=== PATIENT | male | born 1945 | race Caucasian/White ===

== ENCOUNTER 2019-11-04 14:59 | Emergency (ER) | payer MEDICARE, OTHER ==
[~2019-11-04] VITALS: Ht 170.2 cm; Wt 68.7 kg
[2019-11-04 15:11] VITALS: BP 110/58
[2019-11-04] MEDS ORDERED: IBUPROFEN 400 MG TABLET. PO ONE (15:15)
[2019-11-04] MEDS ORDERED: ORPH-16 PO (15:30)
--- NOTE | 2019-11-04 15:31 | PHYS DOC ---
Past History Additional Past Medical Histor: BPH Past Surgical History: No Surgical History Smoking: Non-smoker Alcohol Use: None Drug Use: None General Adult EDM: Chief Complaint: MECHANICAL FALL HPI: HPI: Patient is a [age] year old [sex] who presents with [] Review of Systems: Review of Systems: Constitutional: Denies fever or chills Eyes: Denies redness or eye pain HENT: Denies nasal congestion or sore throat Respiratory: Denies cough or shortness of breath Cardiovascular: Denies chest pain or palpitations GI: Denies abdominal pain, nausea, or vomiting : Denies dysuria or hematuria Musculoskeletal: Denies back pain or joint pain Integument: Denies rash or skin lesions Neurologic: Denies headache, focal weakness or sensory changes Complete systems were reviewed and found to be within normal limits, except as documented in this note. Current Medications: Current Meds: Current Medications Medications (Trade) Dose Ordered Sig/Pat Start Time Stop Time Status Last Admin Dose Admin Ibuprofen (Motrin) 400 mg 1X ONCE 11/04/19 15:15 11/04/19 15:16 UNV Physical Exam: PE: Constitutional: Well developed, well nourished, no acute distress, non-toxic appearance HENT: Normocephalic, atraumatic, oropharynx moist Eyes: PERRL, EOMI, conjunctiva normal, no discharge Neck: Normal range of motion, no tenderness, supple Cardiovascular: Heart rate normal, regular rhythm Lungs & Thorax: Bilateral breath sounds clear to auscultation, no wheezing Abdomen: Soft, no tenderness Skin: Warm, dry, no erythema, no rash Back: No tenderness, no CVA tenderness Extremities: No tenderness, ROM intact, no edema Neurologic: Alert and oriented X 3, normal motor function, normal sensory fun ction, no focal deficits noted Psychologic: Affect normal, judgment normal EKG: EKG: [] Radiology/Procedures: Radiology/Procedures: PROCEDURE: LUMBAR SPINE 2-3V Three-view lumbar spine series Clinical indications: Status post fall. Back pain. FINDINGS: The transverse processes are intact. Moderate compression fracture of the superior endplate of L3 is seen. No discitis or lytic process is evident. Mild retrolisthesis of L1-2 is seen with associated degenerative disc space narrowing and endplate spurring at this level. IMPRESSION: Moderate compression fracture of the superior endplate of L3. Electronically signed by: Nolan Chandra MD (11/04/2019 3:40 PM) [id number] Course & Med Decision Making: Course & Med Decision Making Pertinent Imaging studies reviewed. (See chart for details) Patient stable for discharge with outpatient follow-up with PCP. Discussed findings and plan with patient, who acknowledges understanding and agreement. Jayjay Disclaimer: Drag[employer]se Disclaimer: This electronic medical record was generated, in whole or in part, using a voice recognition dictation system. Departure Departure: Impression: Primary Impression: Fall Qualified Codes: W19.XXXA - Unspecified fall, initial encounter Additional Impressions: Back pain Qualified Codes: M54.41 - Lumbago with sciatica, right side Sciatica Qualified Codes: M54.31 - Sciatica, right side Compression fracture Disposition: HOME/RESIDENCE PRIOR TO ADM Condition: STABLE Referrals: PCP,NO (PCP) Patient Instructions: Back Pain, Adult, [id number], Back, Compression Fracture, Sciatica, [id number] Additional Instructions: May take over the counter Tylenol and/or Ibuprofen as needed for pain. XRays noted a compression fracture. It appears to be old but might have become exacerbated with today's injury. ICE areas of discomfort 20 min on then take off for next 20 min. May repeat several times per day as needed for pain over the next few days. Please call and make appointment to see your family physician in 2-5 days. You may also follow with Dr. Jason Mcqueen (pain management) as needed for further discomfort. Address: [address] [place] [address] Scripts Acetaminophen With Codeine (TYLENOL WITH CODEINE #3 TABLET) 1 Each Tablet 1 TAB PO PRN Q6HRS PRN for pain MDD 4 Tablet(s), #14 TAB 0 Refills Prov: ELODIA VARGHESE DO 11/04/19 Orphenadrine Citrate (ORPHENADRINE CITRATE) 100 Mg Tablet.er 1 TAB PO BID PRN for MUSCLE PAIN, #14 TAB 0 Refills Prov: ELODIA VARGHESE DO 11/04/19 Justification of Admission: Justification of Admission: Justification of Admission Dx: N/A ELODIA VARGHESE DO Nov 04, 2019 15:31
--- NOTE | 2019-11-04 15:43 | RAD ---
Three-view lumbar spine series Clinical indications: Status post fall. Back pain. FINDINGS: The transverse processes are intact. Moderate compression fracture of the superior endplate of L3 is seen. No discitis or lytic process is evident. Mild retrolisthesis of L1-2 is seen with associated degenerative disc space narrowing and endplate spurring at this level. IMPRESSION: Moderate compression fracture of the superior endplate of L3. Electronically signed by: Nolan Chandra MD (11/04/2019 3:40 PM) [id number]
[2019-11-04] MEDS ORDERED: ACET-704 PO (15:53)
[2019-11-04] MEDS ORDERED: ORPHENADRINE CITRATE 60 MG/2 ML VIAL. IM ONE (16:00)
== END 2019-11-04 16:00 | disposition home or self-care (01) ==
LOC: ER 14:59
DX: S32.030A Wedge compression fracture of third lumbar vertebra, initial encounter for closed fracture (principal); M54.41 Lumbago with sciatica, right side; W14.XXXA Fall from tree, initial encounter; Y93.89 Activity, other specified; Y92.89 Other specified places as the place of occurrence of the external cause; Y99.8 Other external cause status
CPT/HCPCS: 72100; 96372; 99283; J2360